=== PATIENT | male | born 1965 | race African-American/Black ===

== ENCOUNTER 2016-04-18 14:41 | Day surgery (SDC) | payer OTHER ==
[~2016-04-18] VITALS: Ht 168.9 cm; Wt 52.6 kg
[~2016-04-18 14:41] MED LIST: ASPIR-TRIN325 M1 PO; ATORVASTATIN CA40 MG PO; CYCLOBENZAPRINE10 MG PO; HABITROL,NICODE14 MG TD; MOTRIN600 MG PO; NOHOMEMEDS; TRAMADOL HCL50 MG PO; VITAMIN D50000 UNI1 PO; WELLBUTRIN SR150 MG PO; WELLBUTRIN XL150 MG PO
== END 2016-04-18 17:25 | disposition home or self-care (01) ==
LOC: PAIN 14:41 → SDC 15:15 → PAIN 15:15
PROC: 3E0S33Z Introduction of Anti-inflammatory into Epidural Space, Percutaneous Approach (ICD-10-PCS; principal; 2016-04-18)
DX: M50.223 Other cervical disc displacement at C6-C7 level (principal); M54.12 Radiculopathy, cervical region; F41.1 Generalized anxiety disorder; M48.02 Spinal stenosis, cervical region; E78.5 Hyperlipidemia, unspecified
CPT/HCPCS: J1030; J2250; J3010

== ENCOUNTER 2016-05-16 14:49 | Day surgery (SDC) | payer OTHER ==
[~2016-05-16] VITALS: Ht 168.9 cm; Wt 52.6 kg
[~2016-05-16 14:49] MED LIST changes: +LIPITOR40 MG PO
== END 2016-05-16 16:57 | disposition home or self-care (01) ==
LOC: PAIN 14:49 → SDC 15:15 → PAIN 16:57
PROC: 3E0S33Z Introduction of Anti-inflammatory into Epidural Space, Percutaneous Approach (ICD-10-PCS; principal; 2016-05-16)
DX: M50.223 Other cervical disc displacement at C6-C7 level (principal); M48.02 Spinal stenosis, cervical region; F41.9 Anxiety disorder, unspecified; F17.200 Nicotine dependence, unspecified, uncomplicated; M54.12 Radiculopathy, cervical region; E78.5 Hyperlipidemia, unspecified; F32.9 Major depressive disorder, single episode, unspecified; Z88.8 Allergy status to other drugs, medicaments and biological substances
CPT/HCPCS: J1030; J2250; J3010

== ENCOUNTER 2016-07-25 09:46 | Day surgery (SDC) | payer OTHER ==
[~2016-07-25] VITALS: Ht 168.9 cm; Wt 53.5 kg
== END 2016-07-25 11:21 | disposition home or self-care (01) ==
LOC: PAIN 09:46 → SDC 10:00 → PAIN 10:00
DX: M50.11 Cervical disc disorder with radiculopathy, high cervical region (principal); M48.02 Spinal stenosis, cervical region; E78.5 Hyperlipidemia, unspecified; K21.9 Gastro-esophageal reflux disease without esophagitis; F41.8 Other specified anxiety disorders; Z79.891 Long term (current) use of opiate analgesic; Z79.899 Other long term (current) drug therapy; F17.210 Nicotine dependence, cigarettes, uncomplicated
CPT/HCPCS: J1030; J2250; J3010; S0020

== ENCOUNTER 2016-08-01 08:21 | Day surgery (SDC) | payer OTHER ==
[~2016-08-01] VITALS: Ht 168.9 cm; Wt 53.5 kg
== END 2016-08-01 10:20 | disposition home or self-care (01) ==
LOC: PAIN 08:21 → SDC 08:45 → PAIN 10:20
DX: M50.121 Cervical disc disorder at C4-C5 level with radiculopathy (principal); M48.02 Spinal stenosis, cervical region; E78.5 Hyperlipidemia, unspecified; K21.9 Gastro-esophageal reflux disease without esophagitis; F41.9 Anxiety disorder, unspecified; F17.210 Nicotine dependence, cigarettes, uncomplicated; Z79.891 Long term (current) use of opiate analgesic; Z79.899 Other long term (current) drug therapy
CPT/HCPCS: J1030; J2250; J3010; S0020

== ENCOUNTER 2016-09-20 22:14 | Emergency (ER) | payer OTHER ==
[~2016-09-20] VITALS: Ht 167.6 cm; Wt 53.8 kg
[2016-09-20] MEDS ORDERED: AMOXICILLIN500 MG PO (23:08)
[2016-09-20 23:45] VITALS: BP 150/107
== END 2016-09-20 23:46 | disposition home or self-care (01) ==
LOC: EME 22:14 → EXP 22:14
PROC: 0CQ1XZZ Repair Lower Lip, External Approach (ICD-10-PCS; principal; 2016-09-20)
DX: S01.511A Laceration without foreign body of lip, initial encounter (principal); S00.83XA Contusion of other part of head, initial encounter; Y04.0XXA Assault by unarmed brawl or fight, initial encounter; Y93.71 Activity, boxing
CPT/HCPCS: 70110; 99281; 99284

== ENCOUNTER 2016-10-23 09:56 | Day surgery (SDC) | payer OTHER ==
[~2016-10-23] VITALS: Ht 168.9 cm; Wt 53.6 kg
[~2016-10-23 09:56] MED LIST changes: +AMOXICILLIN500 MG PO; +ERGOCALCIF50000 UNIT PO
== END 2016-10-23 11:35 | disposition home or self-care (01) ==
LOC: PAIN 09:56 → SDC 10:30 → PAIN 10:30
PROC: 01513ZZ Destruction of Cervical Nerve, Percutaneous Approach (ICD-10-PCS; principal; 2016-10-23)
DX: M47.22 Other spondylosis with radiculopathy, cervical region (principal); M48.02 Spinal stenosis, cervical region; F41.9 Anxiety disorder, unspecified; M25.511 Pain in right shoulder; F17.200 Nicotine dependence, unspecified, uncomplicated; E78.5 Hyperlipidemia, unspecified; F32.9 Major depressive disorder, single episode, unspecified
CPT/HCPCS: J1030; J2250; J3010; S0020

== ENCOUNTER 2016-10-30 09:49 | Day surgery (SDC) | payer OTHER ==
[~2016-10-30] VITALS: Ht 168.9 cm; Wt 53.5 kg
[~2016-10-30 09:49] MED LIST changes: +PROAIR HFA8.5 GM IH
== END 2016-10-30 11:50 | disposition home or self-care (01) ==
LOC: PAIN 09:49 → SDC 10:30 → PAIN 11:50
PROC: 01513ZZ Destruction of Cervical Nerve, Percutaneous Approach (ICD-10-PCS; principal; 2016-10-30)
DX: M47.22 Other spondylosis with radiculopathy, cervical region (principal); M48.02 Spinal stenosis, cervical region; M50.20 Other cervical disc displacement, unspecified cervical region; F41.9 Anxiety disorder, unspecified; F17.200 Nicotine dependence, unspecified, uncomplicated; F32.9 Major depressive disorder, single episode, unspecified; Z88.8 Allergy status to other drugs, medicaments and biological substances
CPT/HCPCS: J1030; J2250; J3010; S0020

== ENCOUNTER 2017-10-11 10:26 | Day surgery (SDC) | payer OTHER ==
[~2017-10-11] VITALS: Ht 170.2 cm; Wt 53.0 kg
[~2017-10-11 10:26] MED LIST changes: +LORCET 5-325 M1 EACH PO; +NEURONTIN300 MG PO; +VITAMIN D22000 UNIT PO
[2017-10-11] MEDS ORDERED: TYLENOL EXTRA500 MG PO (10:50)
[2017-10-11 11:03] VITALS: BP 132/78
[2017-10-11] MEDS ORDERED: LORCET 5-325 M1 EACH PO (14:34)
[2017-10-11 16:15] VITALS: BP 124/77
[2017-10-11 17:00] VITALS: BP 140/86
== END 2017-10-11 17:15 | disposition home or self-care (01) ==
LOC: SDC 10:26
DX: G56.22 Lesion of ulnar nerve, left upper limb (principal); G56.02 Carpal tunnel syndrome, left upper limb; F17.210 Nicotine dependence, cigarettes, uncomplicated; J44.9 Chronic obstructive pulmonary disease, unspecified; F41.1 Generalized anxiety disorder; Z82.49 Family history of ischemic heart disease and other diseases of the circulatory system; Z82.5 Family history of asthma and other chronic lower respiratory diseases
CPT/HCPCS: J0690; J2405; J3010

== ENCOUNTER 2017-10-24 16:03 | Inpatient (IN) | payer OTHER ==
[~2017-10-24] VITALS: Ht 167.6 cm; Wt 54.7 kg
[~2017-10-24 16:03] MED LIST changes: +TYLENOL EXTRA500 MG PO
[2017-10-24 16:30] VITALS: BP 136/90
[2017-10-24 17:08] LABS: HEMATOCRIT 45.2 % (38.0-50.0); HEMOGLOBIN 15.7 G/DL (12.5-16.6); MCHC 34.7 G/DL (30.0-36.0); MCV 89.3 FL (86-99); PLATELET COUNT 218 K/uL (156-360); RBC DIS.WIDTH-SD 42.5 % (39-53); RED BLOOD COUNT 5.06 M/uL (4.00-5.50); WHITE BLOOD COUNT 9.8 K/uL (4.1-10.2)
[2017-10-24 17:30] LABS: ALBUMIN 4.1 G/DL (3.2-4.8); ALKALINE PHOSPHATASE 74 IU/L (3-129); ALT (GPT) 28 IU/L (3-49); AST (GOT) 20 IU/L (2-34); CHLORIDE 102 MEQ/L (99-109); CREATININE 1.4 MG/DL (0.6-1.3); GFR ESTIMATE (CALCULATED) > 59 mL/min/ (58.99-99999); GLUCOSE 94 mg/dL (70-99); POTASSIUM 4.1 MEQ/L (3.7-5.4); SODIUM 135 MEQ/L (136-147); TOTAL BILIRUBIN 0.5 MG/DL (0.0-1.0); TOTAL PROTEIN 6.5 G/DL (6.4-8.3); UREA NITROGEN (BUN) 16 mg/dL (9-23)
[2017-10-24 17:48] LABS: ERTH.SED.RATE 15 MM/HR (0-20)
[2017-10-24 19:56] VITALS: BP 136/85
[2017-10-24] MEDS ORDERED: GABAPENTIN400 MG PO (22:56)
[2017-10-24] MEDS ORDERED: OXYCODONE-APAP1 EACH PO (22:56)
[2017-10-24 23:34] VITALS: BP 133/87
[2017-10-25 03:59] VITALS: BP 115/74
[2017-10-25 09:24] VITALS: BP 123/65
[2017-10-25 11:55] VITALS: BP 122/71
[2017-10-25 15:40] VITALS: BP 108/67
== END 2017-10-25 21:42 | disposition home or self-care (01) | DRG 920 ==
LOC: 3EAST 16:03
PROVIDERS: Neurological Surgery
DX: T81.31XA Disruption of external operation (surgical) wound, not elsewhere classified, initial encounter (principal); Z79.899 Other long term (current) drug therapy; G56.20 Lesion of ulnar nerve, unspecified upper limb; G56.02 Carpal tunnel syndrome, left upper limb; Z68.1 Body mass index [BMI] 19.9 or less, adult; J44.9 Chronic obstructive pulmonary disease, unspecified; F19.90 Other psychoactive substance use, unspecified, uncomplicated
CPT/HCPCS: 80053; 85027; 85651; 87070; 87075; 87205; A6260; J0690

== ENCOUNTER 2017-11-05 22:31 | Emergency (ER) | payer OTHER ==
[~2017-11-05] VITALS: Ht 170.2 cm; Wt 56.9 kg
[~2017-11-05 22:31] MED LIST changes: +GABAPENTIN400 MG PO; +OXYCODONE-APAP1 EACH PO
[2017-11-06 00:55] LABS: HEMATOCRIT 45.8 % (38.0-50.0); HEMOGLOBIN 15.9 G/DL (12.5-16.6); MCH 31.3 PG (29.0-34.0); MCHC 34.7 G/DL (30.0-36.0); MCV 90.2 FL (86-99); PLATELET COUNT 190 K/uL (156-360); RBC DIS.WIDTH-CV 12.7 % (11.8-14.6); RBC DIS.WIDTH-SD 42.2 % (39-53); RED BLOOD COUNT 5.08 M/uL (4.00-5.50); WHITE BLOOD COUNT 7.3 K/uL (4.1-10.2)
[2017-11-06 01:11] LABS: CHLORIDE 105 mEq/L (99-109); POTASSIUM 4.8 mEq/L (3.7-5.4); SODIUM 141 mEq/L (136-147)
[2017-11-06 01:13] LABS: GLUCOSE 89 mg/dL (70-99)
[2017-11-06 01:16] LABS: CREATININE 1.4 mg/dL (0.6-1.3); GFR ESTIMATE (CALCULATED) > 59 mL/min/ (58.99-99999)
[2017-11-06 01:17] LABS: UREA NITROGEN (BUN) 29 mg/dL (9-23)
[2017-11-06 02:56] LABS: ERTH.SED.RATE 11 MM/HR (0-20)
[2017-11-06 03:05] LABS: C-REACTIVE PROTEIN 1.3 MG/L (0-10)
[2017-11-06] MEDS ORDERED: LYRICA50 MG PO (03:16)
[2017-11-06 03:51] VITALS: BP 114/75
== END 2017-11-06 03:56 | disposition home or self-care (01) ==
LOC: EME 22:31
PROVIDERS: Physician Assistant
DX: G89.18 Other acute postprocedural pain (principal); K21.9 Gastro-esophageal reflux disease without esophagitis; G89.29 Other chronic pain; E55.9 Vitamin D deficiency, unspecified; F17.200 Nicotine dependence, unspecified, uncomplicated; Z88.8 Allergy status to other drugs, medicaments and biological substances
CPT/HCPCS: 76882; 80048; 85027; 85651; 86140; J3010